=== PATIENT | male | born 2000 | race American Indian/Alaskan Native ===

== ENCOUNTER 2018-02-11 04:12 | Emergency (ER) | payer SELFPAY ==
[2018-02-11 04:58] VITALS: BP 126/86
[2018-02-11] MEDS ORDERED: MOTRIN PO ONE (04:58)
== END 2018-02-11 09:40 | disposition left against medical advice (07) ==
LOC: ED 04:12
DX: R68.84 Jaw pain (principal); Z53.21 Procedure and treatment not carried out due to patient leaving prior to being seen by health care provider